=== PATIENT | male | born 1995 | race Caucasian/White ===

== ENCOUNTER 2019-02-06 13:37 | Emergency (ER) | payer OTHER ==
[~2019-02-06] VITALS: Ht 185.4 cm; Wt 74.8 kg
[2019-02-06 14:30] VITALS: BP 106/66
[2019-02-06] MEDS ORDERED: BENADRYL25 MG PO (14:33)
[2019-02-06] MEDS ORDERED: PREDNISONE 20 M20 MG PO (14:33)
[2019-02-06] MEDS ORDERED: PEPCID40 MG PO (14:33)
[2019-02-06] MEDS ORDERED: KEFLEX500 M1 PO (14:33)
== END 2019-02-06 14:30 | disposition home or self-care (01) ==
LOC: ER 13:37
DX: T63.441A Toxic effect of venom of bees, accidental (unintentional), initial encounter (principal); M25.471 Effusion, right ankle; Y92.89 Other specified places as the place of occurrence of the external cause